=== PATIENT | male | born 1945 | race Caucasian/White ===

== ENCOUNTER → 2016-06-05 | Outpatient (CLI) | payer MEDICARE ==
[2016-06-05 16:35] LABS: ALBUMIN 3.7 gm/dL (3.5-5.0); ANION GAP 10.4 (10.0-19.0); CALCIUM 8.8 mg/dL (8.5-10.5); CREATININE 1.4 mg/dL (0.6-1.3); PHOSPHORUS 2.9 mg/dL (2.5-4.9); POTASSIUM 4.4 mMol/L (3.7-5.1)
== END | disposition disaster alternative care site (69) ==
LOC: LCNC 15:42
PROVIDERS: Internal Medicine Interventional Cardiology
DX: Z51.81 Encounter for therapeutic drug level monitoring (principal); Z79.01 Long term (current) use of anticoagulants

== ENCOUNTER → 2016-06-09 | Outpatient (CLI) | payer MEDICARE ==
--- NOTE | ~2016-06-09 | ESTC ---
Cardiac Perfusion Imaging Demographics Patient Name VIVIAN Sexton Gender Male Patient Number [id number] Race Visit Number [id number] Ethnicity [employer] ID Room Number Accession Number [id number] Height 70 inches Date of 1945 Weight 161 pounds Physician Interpreting Eduardo Jose MD Date of study 06/09/2016 Physician Supervising /ISABELA Batista APRN Technologist Ordering Physician Eduardo Jose MD Stress Laura Castro, machine operator slitter technician RT,RVT,RDCS Stress ECG Reading Edin Guajardo Nurse Abdulaziz Reeder RN Physician Lynne COREA Procedure Procedure Type: Nuclear Stress Test:Pharmacological, Lexiscan, Cardiolite Stress Test Procedure Start time: 06/09/2016 09:00 Indications: Chest pain. Risk Factors The patient risk factors include:prior PCI;former tobacco use, treated and controlled hypercholesterolemia and treated and controlled hypertension. Conclusions Summary Cardiolite SPECT images demonstrates homogenous uptake of radioactive tracer. No evidence of inducible reversible defect and no evidence of underlying fixed defect. Normal TID ratio Gated images demonstrates global hypokinesis, LVEF is 46% Stress Protocols Resting ECG Chronic AF Resting HR:106 bpm Resting BP:138/52 mmHg Pre-stress physical exam: History of AAA, Chronic AF. Stress Protocol:Pharmacologic Peak HR:108 bpm HR response: Appropriate Predicted HR: 150 bpm BP response: Appropriate % of predicted HR: 72 Reason for termination:Infusion complete ECG Findings Indeterminate ECG due to baseline abnormalities. Remains AF Arrhythmias No new abnormalities Symptoms Flushing, nausea. Stress Interpretation Negative stress ECG for ischemia. Normal heart rate and blood pressure response to stress. No new atrial or ventricular arrhythmias. Remains in AF. Stress supervision and interpretation provided by Casandra Jesus APRN . Imaging Results Summed scores - Summed stress score: 5 - Summed rest score: 12 - Summed difference score: -7 Stress ejection Ejection fraction:46 % EDV :119 ml ESV :64 ml Stroke volume :55 ml LV mass :149 gr Imaging Protocols Rest Stress Isotope:Tc99m Sestamibi IV Isotope: Tc99m Sestamibi IV Isotope dose:11.1 mCi Isotope dose:35.8 mCi Date:06/09/2016 07:37 Date:06/09/2016 09:18 Technique: SPECT Technique: Gated Supine SPECT Supine Scan Time:45-60 minutes post Scan Time:45-60 minutes post injection injection Procedure Medications - Regadenoson (Lexiscan) 0.4 mg IV over 10-15 sec. I.V. 0.4 mg. Medical History Admission Data Admission date: 06/09/2016 Admission Time: 07:16 Hospital Status: Outpatient. Signatures dtt: Damon Clark (cardio) dtd: 06/09/16 0900 Physician Self Edit
== END | disposition disaster alternative care site (69) ==
LOC: GRAD 07:16
DX: I71.2 Thoracic aortic aneurysm, without rupture (principal); I20.9 Angina pectoris, unspecified; R91.1 Solitary pulmonary nodule
CPT/HCPCS: A9500; J2785; Q9967